=== PATIENT | female | born 1985 | race Two or more races ===

== ENCOUNTER 2018-10-18 20:41 | Emergency (ER) | payer OTHER, SELFPAY ==
[~2018-10-18] VITALS: Ht 157.5 cm; Wt 70.3 kg
[2018-10-18 20:45] VITALS: BP 121/71
--- NOTE | 2018-10-18 21:44 | RAD ---
CT lumbar spine without contrast HISTORY: Low back pain. TECHNIQUE: Helical multiplanar reconstructed noncontrast CT imaging of the lumbar spine was acquired. FINDINGS: Lumbar vertebral body height and alignment intact. No fracture. No spondylolysis defect. Paraspinal tissues are unremarkable. There is mild disc height loss and endplate Schmorl's nodes with a probable shallow disc bulge at L1-L2, this could contribute to mild spinal canal and neural foraminal stenoses. There is L5-S1 posterior disc height loss and probable at least mild disc bulge, and mild facet hypertrophy. Similar probable shallow disc bulge and facet hypertrophy L4-L5 with possible mild neural foraminal stenoses. IMPRESSION: No acute osseous injury of the lumbar spine. Lumbar disc disease. Exposure: One or more of the following individualized dose reduction techniques were utilized for this examination: 1. Automated exposure control 2. Adjustment of the mA and/or kV according to patient size 3. Use of iterative reconstruction technique Electronically signed by: Lopez Kimbrough MD (10/18/2018 9:41 PM) [facility]
[2018-10-18] MEDS ORDERED: DICL50TA2 PO (22:08)
[2018-10-18] MEDS ORDERED: METH4TAB2 PO (22:08)
[2018-10-18] MEDS ORDERED: CYCL10TA2 PO (22:08)
--- NOTE | 2018-10-18 22:08 | PHYS DOC ---
Past Medical History Past Medical History: No Pertinent History Past Surgical History: Alcohol Use: None Drug Use: None Adult General Chief Complaint Chief Complaint: LOWER BACK PAIN OR INJURY HPI HPI Patient is a 33 year old female, medical history who presents to the ED today complaining of 8 out of 10 low back pain that began on Friday last week after she fell getting out of her car at [employer]. Patient denies any loss of consciousness. Denies any pain radiating to bilateral lower extremities. She states the pain is sharp and constant worse on sitting and certain movements. She states she was seen at the [facility]'s urgent care, had negative x-rays but was told to come back to the ED if pain persists because she could have an occult fracture that was being missed on x-ray. She states her pain has persisted. Review of Systems Review of Systems Constitutional: Denies fever or chills [] GI: Denies abdominal pain, nausea, vomiting, bloody stools or diarrhea [] : Denies dysuria or hematuria [] Musculoskeletal: Reports low back pain Integument: Denies rash or skin lesions [] Neurologic: Denies headache, focal weakness or sensory changes [] All other systems were reviewed and found to be within normal limits, except as documented in this note. Allergies Allergies Allergies Coded Allergies Type Severity Reaction Last Updated Verified No Known Drug Allergies 10/18/18 No Physical Exam Physical Exam Constitutional: Well developed, well nourished, no acute distress, non-toxic appearance. [] Abdomen: Bowel sounds normal, soft, no tenderness, no masses, no pulsatile masses. [] Skin: Warm, dry, no erythema, no rash. [] Back: Diffuse paraspinal muscle tenderness to bilateral lumbar spine worse on the coccyx tenderness, no CVA tenderness. [] Extremities: No tenderness, no cyanosis, no clubbing, ROM intact, no edema. [] Neurologic: Alert and oriented X 3, normal motor function, normal sensory function, no focal deficits noted. [] Psychologic: Affect normal, judgement normal, mood normal. [] Current Patient Data Vital Signs Vital Signs Date Time Temp Pulse Resp B/P (MAP) Pulse Ox O2 Delivery O2 Flow Rate FiO2 10/18/18 20:45 98.7 97 16 121/71 (88) 96 Room Air 98.7 EKG EKG [] Radiology/Procedures Radiology/Procedures []PROCEDURE: CT LUMBAR SPINE WO CONTRAST CT lumbar spine without contrast HISTORY: Low back pain. TECHNIQUE: Helical multiplanar reconstructed noncontrast CT imaging of the lumbar spine was acquired. FINDINGS: Lumbar vertebral body height and alignment intact. No fracture. No spondylolysis defect. Paraspinal tissues are unremarkable. There is mild disc height loss and endplate Schmorl's nodes with a probable shallow disc bulge at L1-L2, this could contribute to mild spinal canal and neural foraminal stenoses. There is L5-S1 posterior disc height loss and probable at least mild disc bulge, and mild facet hypertrophy. Similar probable shallow disc bulge and facet hypertrophy L4-L5 with possible mild neural foraminal stenoses. IMPRESSION: No acute osseous injury of the lumbar spine. Lumbar disc disease. Exposure: One or more of the following individualized dose reduction techniques were utilized for this examination: 1. Automated exposure control 2. Adjustment of the mA and/or kV according to patient size 3. Use of iterative reconstruction technique Electronically signed by: Rose Kimbrough MD (10/18/2018 9:41 PM) [facility] DICTATED and SIGNED BY: ROSE KIMBROUGH MD DATE: 10/18/182140 Course & Med Decision Making Course & Med Decision Making Pertinent Labs and Imaging studies reviewed. (See chart for details) This is a 33-year-old female patient presenting to the ED today with low back pain status post falling on Friday last week. Had negative x-rays done at an urgent care. Still complaining of pain. CT of the lumbar spine is negative for any acute findings. Given prescription for Medrol dosepak, she already has Flexeril. Also given diclofenac. Donut cushion recommended. Follow-up with PCP in 1-2 weeks. Ice to the affected area. Dragon Disclaimer Dragon Disclaimer This electronic medical record was generated, in whole or in part, using a voice recognition dictation system. Departure Departure Impression: Primary Impression: Fall from standing Additional Impression: Lumbar contusion Disposition: 01 HOME, SELF-CARE Condition: STABLE Patient Instructions: Contusion, Fall Prevention and Home Safety Additional Instructions: You were evaluated in the emergency room for back pain after falling. Your CT of the lumbar spine was negative for any fractures. No acute findings were noted on CT. Consider getting a donut cushion and sit on it. You can apply ice or heat to your back. Take the prescribed medications as ordered. Follow-up with your doctor in 1-2 weeks. Scripts Diclofenac Potassium (DICLOFENAC POTASSIUM) 50 Mg Tablet 1 TAB PO BID, #20 TAB 0 Refills Prov: CHACORTA WORKMAN MEY 10/18/18 Cyclobenzaprine Hcl (CYCLOBENZAPRINE HCL) 10 Mg Tablet 1 TAB PO TID, #30 TAB Prov: JELANICLOVISCHACORTA Severino MEY 10/18/18 Methylprednisolone (MEDROL) 4 Mg Tab.ds.pk 1 PKG PO UD, #1 PKG Prov: CHACORTA WORKMAN MEY 10/18/18 Problem Qualifiers Primary Impression: Fall from standing Encounter type: subsequent encounter Qualified Codes: W19.XXXD - Unspecified fall, subsequent encounter Additional Impression: Lumbar contusion Encounter type: initial encounter Qualified Codes: S30.0XXA - Contusion of lower back and pelvis, initial encounter JICHACORTA MATHIAS October 18, 2018 22:08
== END 2018-10-18 22:13 | disposition home or self-care (01) ==
LOC: ER 20:41
DX: S30.0XXA Contusion of lower back and pelvis, initial encounter (principal); Z98.890 Other specified postprocedural states; W18.39XA Other fall on same level, initial encounter; Y93.89 Activity, other specified; Y92.89 Other specified places as the place of occurrence of the external cause; Y99.8 Other external cause status
CPT/HCPCS: 72131; 99284-25